=== PATIENT | female | born 1995 | race Caucasian/White ===

== ENCOUNTER 2017-01-18 14:59 | Emergency (ER) | payer BC ==
[2017-01-18 15:27] VITALS: BP 113/62
--- NOTE | 2017-01-18 15:30 | UC ---
Ear Complaint HPI - HPI Summary HPI Summary: 21 y/o female adolescent presents to the urgent care c/o B/L ear pain with sinus tenderness for the past 2 days. Pt reports she has Hx of B/L tubes surgery placed in 2008. Pt states pain is 8/10 associated with nasal congestion and mild subjunctive fever at home. She has taken ibuprofen PO yesterday with provided some relief. Pt denies hearing loss, dizziness, sore throat, sough, SOB , chest pain, N/V/D - History of Current Complaint Chief Complaint: UCEar Stated Complaint: DOUBLE EAR INFECTION Time Seen by Provider: 01/18/17 15:26 Hx Obtained From: Patient Hx Last Menstrual Period: 01/02/17 ?: No Onset/Duration: Gradual Onset, Lasting Days - 2 days, Still Present Severity Initially: Moderate Severity Currently: Severe Pain Intensity: 8 Pain Scale Used: 0-10 Numeric Alleviating Factors: OTC Meds Associated Signs/Symptoms: Positive: URI Symptoms. Negative: Hearing Loss - Allergies/Home Medications Allergies/Adverse Reactions: Allergies Allergy/AdvReac Type Severity Reaction Status Date / Time Oxycodone Allergy Vomiting Verified 01/18/17 15:27 Home Medications: Home Medications Control Pill 1 tab PO DAILY 01/18/17 [History Confirmed 01/18/17] PMH/Surg Hx/FS Hx/Imm Hx Previously Healthy: Yes - Pt denies PMHX - Surgical History Surgical History: Yes Surgery Procedure, Year, and Place: Jaw surgery august 2015 - Family History Known Family History: Positive: None - Pt denies FMHX - Social History Occupation: Employed Full-time, Student Lives: With Family Alcohol Use: None Substance Use Type: None Smoking Status (MU): Never Smoked Tobacco - Immunization History Most Recent Influenza Vaccination: 12/2016 Vaccination Up to Date: Yes Review of Systems Constitutional: Fever - mild subjective at home Skin: Negative Eyes: Negative ENT: Nasal Discharge - yellowish discharge, Sinus Congestion, Sinus Pain/ Tenderness Respiratory: Negative Cardiovascular: Negative Gastrointestinal: Negative Genitourinary: Negative Motor: Negative Neurovascular: Negative Musculoskeletal: Negative Neurological: Negative Psychological: Negative Is Patient Immunocompromised?: No All Other Systems Reviewed And Are Negative: Yes Physical Exam Triage Information Reviewed: Yes Appearance: Well-Appearing, No Pain Distress, Well-Nourished Vital Signs: Initial Vital Signs Temp 97.9 F 01/18/17 15:23 Pulse 84 01/18/17 15:23 Resp 16 01/18/17 15:23 BP 113/62 01/18/17 15:23 Pulse Ox 100 01/18/17 15:23 Vital Signs Reviewed: Yes Eye Exam: Normal Eyes: Positive: Conjunctiva Clear - PERRLA, EOMI, fundi grossly normal ENT: Positive: Normal ENT inspection, Hearing grossly normal, Pharyngeal erythema, Nasal congestion - edematous eyrthematous nasal mucosa, Nasal drainage - yellowish nasal discahrge, TM red - LF exteranl ear canal WNL, LF TM with erythema and yellowish discharge, RT external ear canal clear, Rt TM WNL., Other: - B/L maxiallary and Tempoaral sinus tenderness on percussion.. Negative : Tonsillar swelling, Tonsillar exudate Dental Exam: Normal Neck exam: Normal Neck: Positive: Supple, Nontender, Enlarged Nodes @ - LF enlarge and tender anterior cervical lymphnode Respiratory Exam: Normal Respiratory: Positive: Chest non-tender, Lungs clear, Normal breath sounds, No respiratory distress Cardiovascular Exam: Normal Cardiovascular: Positive: RRR, No Murmur, Pulses Normal Abdominal Exam: Normal Abdomen Description: Positive: Nontender, No Organomegaly, Soft. Negative: CVA Tenderness (R), CVA Tenderness (L) Bowel Sounds: Positive: Present Musculoskeletal Exam: Normal Musculoskeletal: Positive: Strength Intact, ROM Intact, No Edema Neurological Exam: Normal Psychological Exam: Normal Skin Exam: Normal Ear Complaint Course/Dx - Course Course Of Treatment: 21 y/o female adolescent presents to the urgent care c/o B/ L ear pain with sinus tenderness for the past 2 days. Pt reports she has Hx of B /L tubes surgery placed in 2008. Pt states pain is 8/10 associated with nasal congestion and mild subjunctive fever at home. She has taken ibuprofen PO yesterday with provided some relief. Pt denies hearing loss, dizziness, sore throat, sough, SOB, chest pain, N/V/D. Hx obtained. Pt with acute left otitis media and sinusistis on examination. Pt Rx Amoxicillin PO and Ibuprofen PO for pain and flonase to clear the sinusis. Pt advised If symptoms do not improve or worsen to return to the urgent care or f/u with her PCP or ENT for further evaluation and treatment. Pt understood and agreed with plan of care. - Differential Dx/Diagnosis Differential Diagnosis/HQI/PQRI: Mastoiditis, Otitis Externa, Otitis Media, Perforated TM, Pharyngitis, URI Provider Diagnoses: 1- Acute left otitis media. 2-Acute sinusitis Discharge - Discharge Plan Condition: Stable Disposition: HOME Prescriptions: Amoxicillin PO (*) [Amoxicillin 875 MG (*)] 875 mg PO BID #20 tab Fluticasone NASAL SPRAY 50MCG* [Flonase NASAL SPRAY 50MCG*] 2 spray BOTH NARES DAILY #1 btl Ibuprofen TAB* [Motrin TAB* 800 MG] 800 mg PO Q6H #20 tab Patient Education Materials: Otitis Media (ED), Sinusitis (ED) Forms: *Work Release Referrals: [facility] [Outside] Additional Instructions: 1- Please take the full course of the antibiotic to avoid resistance. 2-Please take ibuprofen PO q6-8hrs prn as instructed after meals to alleviate ear pain and swelling. 3-Use the Flonase nasal spray as directed to alleviate sinusitis 4-If symptoms do not improve or worsen please return to the urgent care or f/u with your PCP or ENT for further evaluation and treatment.
== END 2017-01-18 15:50 | disposition home or self-care (01) ==
LOC: UCCORT 14:59
DX: J01.90 Acute sinusitis, unspecified (principal); H66.92 Otitis media, unspecified, left ear
CPT/HCPCS: 99202; G0463

== ENCOUNTER 2018-12-18 09:50 | Emergency (ER) | payer BC ==
[2018-12-18 10:18] VITALS: BP 131/75
--- NOTE | 2018-12-18 11:03 | UC ---
Complaint Female HPI - HPI Summary HPI Summary: Pt presents with c/o of pelvic pressure, bloating, vaginal itching, soreness, discharge and discomfort. Pt also c/o of increased pelvic pressure, increased urinary frequency, and is concerned that she may have a UTI. Pt also reports that she has a new partner and is concerned about possible exposure to herpes. Denies painful sores. - History Of Current Complaint Chief Complaint: UCGU Stated Complaint: URINARY, PERSONAL Time Seen by Provider: 12/18/18 10:12 Hx Obtained From: Patient Hx Last Menstrual Period: 11/24/18 ?: No Onset/Duration: Gradual Onset Timing: Constant Severity Initially: Mild Severity Currently: Moderate Pain Intensity: 6 Character: Dull, Burning, Cramping Aggravating Factor(s): Urination Alleviating Factor(s): Nothing Associated Signs And Symptoms: Positive: Vaginal Discharge, Genital Swelling - Risk Factors Ectopic Risk Factor: Negative Ovarian Torsion Risk Factor: Reproductive Age - Allergies/Home Medications Allergies/Adverse Reactions: Allergies Allergy/AdvReac Type Severity Reaction Status Date / Time oxycodone Allergy Vomiting Verified 12/18/18 10:12 Home Medications: Home Medications Phenazopyridine HCl [Urinary Pain Relief] 190 mg PO Q8H PRN 12/18/18 [History Confirmed 12/18/18] PMH/Surg Hx/FS Hx/Imm Hx Previously Healthy: Yes - Surgical History Surgical History: Yes Surgery Procedure, Year, and Place: Corrective Underbite, 2016 - Family History Known Family History: Positive: None - Pt denies FMHX, Cardiac Disease - Social History Occupation: Employed Part-time, Student Lives: Dormitory/Roommates Alcohol Use: Occasionally Substance Use Type: None Smoking Status (MU): Never Smoked Tobacco Have You Smoked in the Last Year: No - Immunization History Most Recent Influenza Vaccination: 12/2016 Vaccination Up to Date: Yes Review of Systems All Other Systems Reviewed And Are Negative: Yes Constitutional: Positive: Negative Skin: Positive: Negative Eyes: Positive: Negative ENT: Positive: Negative Respiratory: Positive: Negative Cardiovascular: Positive: Negative Gastrointestinal: Positive: Negative Genitourinary: Positive: Dysuria, Frequency, Urgency, Vaginal/Penile Burning, Vaginal/Penile Itching, Vaginal/Penile Discharge, Vaginal/Penile Tenderness Motor: Positive: Negative Neurovascular: Positive: Negative Musculoskeletal: Positive: Negative Neurological: Positive: Negative Psychological: Positive: Negative Is Patient Immunocompromised?: No Physical Exam Triage Information Reviewed: Yes Appearance: Well-Appearing Vital Signs: Initial Vital Signs Temp 98.6 F 12/18/18 10:09 Pulse 78 12/18/18 10:09 Resp 16 12/18/18 10:09 BP 131/75 12/18/18 10:09 Pulse Ox 100 12/18/18 10:09 Vital Signs Reviewed: Yes Eye Exam: Normal ENT: Positive: Hearing grossly normal Dental Exam: Normal Neck exam: Normal Respiratory Exam: Normal Cardiovascular Exam: Normal Abdomen Description: Positive: Nontender Pelvic Exam: Positive: Bimanual Exam Normal, No Cerv. Motion Tender, Discharge, Other - thick white discharge, mildly erythematous and swollen vaginal canal, no strawberry cervix Musculoskeletal Exam: Normal Neurological Exam: Normal Psychological Exam: Normal Skin Exam: Normal Complaint Female Dx - Differential Dx/Diagnosis Differential Diagnosis/HQI/PQRI: Pelvic Inflammatory Disease, Sexually Transmitted Disease, Urinary Tract Infection Provider Diagnosis: Vaginitis, Demetria infection of genital region, UTI (urinary tract infection) Discharge ED - Sign-Out/Discharge Documenting (check all that apply): Patient Departure All imaging exams completed and their final reports reviewed: No Studies - Discharge Plan Condition: Stable Disposition: HOME Prescriptions: Fluconazole 150 MG TAB* [Diflucan 150 MG TAB*] 150 mg PO UC ONCE #3 tablet metroNIDAZOLE VAGINAL 0.75%* 1 applic VAGINAL BEDTIME #5 tube Nitrofurantoin Monohyd/M-Cryst [Macrobid 100 mg Capsule] 100 mg PO Q12H #10 cap Patient Education Materials: Vaginitis (ED) Referrals: [facility] [Outside] - If Needed No Primary Care Phys,NOPCP [Primary Care Provider] - - Billing Disposition and Condition Condition: STABLE Disposition: Home - Attestation Statements Provider Attestation: Per institutional requirements, I have reviewed the chart, however, I was not consulted specifically or made aware of this patient by the midlevel provider. I did not personally evaluate, interact with , or disposition this patient.
--- NOTE | 2018-12-20 07:14 | UC ---
- Progress Note Progress Note: Vaginal DNA results come back from December 18, 2018 as positive for Demetria and Gardnerella. The rest of the results are pending. Patient was treated both with metronidazole and Diflucan and therefore she is being treated appropriately for the Demetria and Gardnerella. Nursing to call patient inform her of the results and that also the rest of the results are pending. Patient to continue present treatment. Course/Dx - Diagnoses Provider Diagnoses: Vaginitis, Demetria infection of genital region, UTI (urinary tract infection) Discharge ED - Sign-Out/Discharge Documenting (check all that apply): Patient Departure All imaging exams completed and their final reports reviewed: No Studies - Discharge Plan Condition: Stable Disposition: HOME Prescriptions: Fluconazole 150 MG TAB* [Diflucan 150 MG TAB*] 150 mg PO UC ONCE #3 tablet metroNIDAZOLE VAGINAL 0.75%* 1 applic VAGINAL BEDTIME #5 tube Nitrofurantoin Monohyd/M-Cryst [Macrobid 100 mg Capsule] 100 mg PO Q12H #10 cap Patient Education Materials: Vaginitis (ED) Referrals: [facility] [Outside] - If Needed No Primary Care Phys,NOPCP [Primary Care Provider] - - Billing Disposition and Condition Condition: STABLE Disposition: Home
--- NOTE | 2018-12-23 07:37 | UC ---
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 Note reviewed, and she does not seem to have active lesions, but was concerned about infection. If not symptomatic, would not recommend treatment. Treatment of this would not decrease vulnerability to future outbreaks. Course/Dx - Diagnoses Provider Diagnoses: Vaginitis, Demetria infection of genital region, UTI (urinary tract infection) Discharge ED - Sign-Out/Discharge Documenting (check all that apply): Patient Departure All imaging exams completed and their final reports reviewed: No Studies - Discharge Plan Condition: Stable Disposition: HOME Prescriptions: Fluconazole 150 MG TAB* [Diflucan 150 MG TAB*] 150 mg PO UC ONCE #3 tablet metroNIDAZOLE VAGINAL 0.75%* 1 applic VAGINAL BEDTIME #5 tube Nitrofurantoin Monohyd/M-Cryst [Macrobid 100 mg Capsule] 100 mg PO Q12H #10 cap Patient Education Materials: Vaginitis (ED) Referrals: [facility] [Outside] - If Needed No Primary Care Phys,NOPCP [Primary Care Provider] - - Billing Disposition and Condition Condition: STABLE Disposition: Home
[2018-12-23 12:05] LABS: Chlamydia trachomatis NAA Negative (Negative); Neisseria gonorrhoeae (GC) NAA Negative (Negative)
== END 2018-12-18 11:02 | disposition home or self-care (01) ==
LOC: UCCORT 09:50
DX: N76.0 Acute vaginitis (principal); B37.3 Candidiasis of vulva and vagina; N39.0 Urinary tract infection, site not specified; B96.89 Other specified bacterial agents as the cause of diseases classified elsewhere
CPT/HCPCS: 84702; 87086; 87106; 87480; 87491; 87510; 87529; 87591; 87661; 99212; G0463

== ENCOUNTER 2019-06-01 14:48 | Emergency (ER) | payer BC ==
[2019-06-01 16:00] VITALS: BP 103/61
[2019-06-01 16:31] LABS: Influenza B Molecular POSITIVE (Negative)
--- NOTE | 2019-06-01 16:57 | UC ---
FLU HPI - HPI Summary HPI Summary: 24-year-old woman comes in with chief complaint of influenza-like symptoms for 2 and half days. She has fevers chills headache body aches. Does have a cough. No chest congestion. Ibuprofen has helped some with the symptoms. This afternoon she feels a little bit better than she did yesterday. - History of Current Complaint Chief Complaint: UCGeneralIllness Stated Complaint: COUGH/FEVER/BODY ACHES Time Seen by Provider: 06/01/19 16:05 Hx Last Menstrual Period: 11/24/18 Pain Intensity: 4 - Allergy/Home Medications Allergies/Adverse Reactions: Allergies Allergy/AdvReac Type Severity Reaction Status Date / Time oxycodone Allergy Vomiting Verified 06/01/19 15:55 Home Medications: Home Medications Ibuprofen TAB* [Motrin TAB* 800 MG] 800 mg PO ONCE 06/01/19 [History Confirmed 06/01/19] Valacyclovir HCl [Valacyclovir] 500 mg PO DAILY 06/01/19 [History Confirmed 04/08] PMH/Surg Hx/FS Hx/Imm Hx Previously Healthy: Yes - Surgical History Surgical History: Yes Surgery Procedure, Year, and Place: Corrective Underbite, 2016 - Family History Known Family History: Positive: None - Pt denies FMHX, Cardiac Disease - Social History Alcohol Use: Occasionally Substance Use Type: None Smoking Status (MU): Never Smoked Tobacco Have You Smoked in the Last Year: No - Immunization History Most Recent Influenza Vaccination: 12/2016 Vaccination Up to Date: Yes Review of Systems All Other Systems Reviewed And Are Negative: Yes Constitutional: Positive: Fever, Chills, Other - see hpu Skin: Positive: Negative Eyes: Positive: Negative ENT: Positive: Nasal Discharge Respiratory: Positive: Cough Cardiovascular: Positive: Negative Gastrointestinal: Positive: Negative Motor: Positive: Negative Neurovascular: Positive: Negative Musculoskeletal: Positive: Myalgia Neurological/Mental Status: Positive: Headache Psychological: Positive: Negative Is Patient Immunocompromised?: No Physical Exam Triage Information Reviewed: Yes Appearance: No Pain Distress, Well-Nourished, Ill-Appearing - mild Vital Signs: Initial Vital Signs Temp 97.8 F 06/01/19 15:56 Pulse 91 06/01/19 15:56 Resp 15 06/01/19 15:56 BP 103/61 06/01/19 15:56 Pulse Ox 100 06/01/19 15:56 Vital Signs Reviewed: Yes Eye Exam: Normal Eyes: Positive: Conjunctiva Clear ENT: Positive: Pharynx normal, Nasal drainage, TMs normal Neck: Positive: Supple Respiratory: Positive: Lungs clear, Normal breath sounds, No respiratory distress Cardiovascular: Positive: RRR Musculoskeletal: Positive: Strength Intact, ROM Intact Neurological: Positive: Alert, Muscle Tone Normal Psychological: Positive: Normal Response To Family, Age Appropriate Behavior Skin Exam: Normal Flu Course/Dx - Course Course Of Treatment: We discussed treatment of influenza symptomatically. Also discussed Tamiflu. Patient declined a Tamiflu because she is after 48 hours and she's starting to feel little bit better. - Differential Dx/Diagnosis Provider Diagnosis: Influenza Discharge ED - Sign-Out/Discharge Documenting (check all that apply): Patient Departure All imaging exams completed and their final reports reviewed: No Studies - Discharge Plan Condition: Stable Disposition: HOME Patient Education Materials: Influenza (ED) Forms: *School Release Referrals: [facility] [Outside] Additional Instructions: FOLLOW UP WITH YOUR DOCTOR IF NOT COMPLETELY IMPROVED. GET REEVALUATED SOONER IF NOT IMPROVED OR WORSE OR ANY QUESTIONS OR CONCERNS. - Billing Disposition and Condition Condition: STABLE Disposition: Home
== END 2019-06-01 17:01 | disposition home or self-care (01) ==
LOC: UCCORT 14:48
DX: J11.1 Influenza due to unidentified influenza virus with other respiratory manifestations (principal); Z88.5 Allergy status to narcotic agent
CPT/HCPCS: 87651; 99211; G0463

== ENCOUNTER 2019-06-06 15:42 | Emergency (ER) | payer BC ==
[2019-06-06 16:08] VITALS: BP 118/78
--- NOTE | 2019-06-06 16:15 | UC ---
Throat Pain/Nasal Leonard HPI - HPI Summary HPI Summary: Pt presents with c/o sinus pressure and pain X 1 week. Pt was dx with flu B last week. Pt states that she is feeling better but now has worsening nasal congestion and sinus pressure and pain with headache. - History of Current Complaint Chief Complaint: UCHeadache Stated Complaint: SINUS COMPLAINT Time Seen by Provider: 06/06/19 16:02 Hx Obtained From: Patient Hx Last Menstrual Period: 05/27/19 ?: No Onset/Duration: Sudden Onset, Lasting Days, Still Present Severity: Moderate Pain Intensity: 7 Cough: None Associated Signs & Symptoms: Positive: Sinus Discomfort - Epiglottits Risk Factors Epiglottis Risk Factors: Negative - Allergies/Home Medications Allergies/Adverse Reactions: Allergies Allergy/AdvReac Type Severity Reaction Status Date / Time oxycodone Allergy Vomiting Verified 06/06/19 16:06 Home Medications: Home Medications Aspirin/Acetaminophen/Caffeine [Excedrin Migraine Caplet] 1 dose PO ONCE [History Confirmed 06/06/19] PMH/Surg Hx/FS Hx/Imm Hx Previously Healthy: Yes - Surgical History Surgical History: Yes Surgery Procedure, Year, and Place: Corrective Underbite, 2016 - Family History Known Family History: Positive: None - Pt denies FMHX, Cardiac Disease - Social History Occupation: Student Lives: Alone Alcohol Use: Occasionally Substance Use Type: None Smoking Status (MU): Never Smoked Tobacco Have You Smoked in the Last Year: No - Immunization History Most Recent Influenza Vaccination: 12/2016 Hx Tetanus, Diphtheria Vaccination: Yes Vaccination Up to Date: Yes Review of Systems All Other Systems Reviewed And Are Negative: Yes Constitutional: Positive: Fatigue Skin: Positive: Negative Eyes: Positive: Negative ENT: Positive: Sinus Congestion, Sinus Pain/Tenderness Respiratory: Positive: Cough Cardiovascular: Positive: Negative Gastrointestinal: Positive: Negative Genitourinary: Positive: Negative Motor: Positive: Negative Neurovascular: Positive: Negative Musculoskeletal: Positive: Negative Neurological/Mental Status: Positive: Headache Psychological: Positive: Negative Is Patient Immunocompromised?: No Physical Exam Triage Information Reviewed: Yes Appearance: Ill-Appearing Vital Signs: Initial Vital Signs Temp 98.9 F 06/06/19 16:06 Pulse 76 06/06/19 16:06 Resp 16 06/06/19 16:06 BP 118/78 06/06/19 16:06 Pulse Ox 100 06/06/19 16:06 Vital Signs Reviewed: Yes Eye Exam: Normal ENT: Positive: Nasal congestion, Sinus tenderness Dental Exam: Normal Neck exam: Normal Respiratory Exam: Normal Musculoskeletal Exam: Normal Neurological Exam: Normal Psychological Exam: Normal Skin Exam: Normal Throat Pain/Nasal Course/Dx - Differential Dx/Diagnosis Differential Diagnosis/HQI/PQRI: Influenza, Sinusitis, URI Provider Diagnosis: Sinusitis Discharge ED - Sign-Out/Discharge Documenting (check all that apply): Patient Departure All imaging exams completed and their final reports reviewed: No Studies - Discharge Plan Condition: Stable Disposition: HOME Prescriptions: Amoxicillin PO (*) [Amoxicillin 875 MG (*)] 875 mg PO Q12H #20 tab guaiFENesin [Mucinex] 600 mg PO Q12H #14 tab.er.12h Patient Education Materials: Sinusitis (ED) Referrals: No Primary Care Phys,NOPCP [Primary Care Provider] - If Needed - Billing Disposition and Condition Condition: STABLE Disposition: Home
== END 2019-06-06 16:21 | disposition home or self-care (01) ==
LOC: UCCORT 15:42
DX: J32.9 Chronic sinusitis, unspecified (principal); R05 Cough; Z88.5 Allergy status to narcotic agent; Z79.82 Long term (current) use of aspirin
CPT/HCPCS: 99212; G0463